=== PATIENT | female | born 1955 | race Caucasian/White ===

== ENCOUNTER 2025-03-26 18:53 | Emergency (ER) | payer OTHER ==
[~2025-03-26] VITALS: Ht 160 cm; Wt 91.0 kg
--- NOTE | 2025-03-26 19:02 | ELECTROCARDIOGRAPH REPORT ---
[facility] Test Date: 2025-03-26 Test Time: 18:55:42 Pat Name: CAMPOS KUMAR Department: EMERGENCY ROOM Room: Gender: F Leadership Program Associate: YARA : 1955 Requested By: CRISTIANO HARO Order Number: [id number] Reading MD: Dr. Kwaku Gallagher Measurements Intervals [place] Rate: 67 P: 38 WV: 160 QRS: -9 QRSD: 103 T: 58 QT: 411 QTc: 434 Interpretive Statements Sinus rhythm Ventricular premature complex Low voltage, precordial leads RSR' in V1 or V2, right VCD or RVH Electronically Signed On 03-27-2025 20:42:[address] Kwaku Gallagher Please click the below link to view image of tracing.
[2025-03-26] MEDS ORDERED: iohexol 300mg/ml 100ml inj. ONE (19:16)
[2025-03-26 19:21] LABS: MEAN PLATELET VOLUME 10.1 FL (7.4-10.4); RED CELL DISTRIBUTION WIDTH 15.9 % (11.5-14.5)
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
[2025-03-26 19:43] LABS: CREATININE 1.13 MG/DL (0.40-0.90); PRO BRAIN NATRIURETIC PEPTIDE 724 PG/ML (0-125); TOTAL CARBON DIOXIDE 24.9 MMOL/L (24-32); eCRCL 38 ML/MIN; eGFR 48 ML/MIN
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
--- NOTE | 2025-03-26 19:53 | RADIOLOGY REPORT ---
CHEST RADIOGRAPH Indication: CP Technique: Single frontal view of the chest was obtained COMPARISON: CT CT CHEST ABDOMEN PELVIS on DOS: 03/26/25 FINDINGS: Lines and Tubes: None Lungs: Increased interstitial prominence. This may represent pulmonary vascular congestion and/or viral pneumonia. Pleura: No effusion.No pneumothorax. Cardiomediastinal contours: Borderline cardiomegaly. Bones: Unremarkable IMPRESSION: Increased interstitial prominence. This may represent pulmonary vascular congestion and/or viral pneumonia.
[2025-03-26 20:45] VITALS: TEMP 97.8
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
[2025-03-26 22:21] VITALS: BP 132/98; PULSE 67; RESP 13; O2SAT 98
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
== END 2025-03-26 22:23 | disposition home or self-care (01) ==
LOC: ER 18:54
DX: R07.9 Chest pain, unspecified (principal); M54.9 Dorsalgia, unspecified; R10.9 Unspecified abdominal pain; R06.02 Shortness of breath; R51.9 Headache, unspecified; Z88.6 Allergy status to analgesic agent; Z88.8 Allergy status to other drugs, medicaments and biological substances; Z88.5 Allergy status to narcotic agent; V49.9XXA Car occupant (driver) (passenger) injured in unspecified traffic accident, initial encounter; Y93.89 Activity, other specified; Y92.410 Unspecified street and highway as the place of occurrence of the external cause; Y99.8 Other external cause status
CPT/HCPCS: 36415; 70450; 71045; 71250; 72125; 74176; 80048; 83880; 84484; 85025; 93005; 99285; Q9967